=== PATIENT | male | born 1970 | race Two or more races ===

== ENCOUNTER 2021-12-13 12:26 | Emergency (ER) | payer BC, OTHER ==
[~2021-12-13] VITALS: Ht 182.9 cm; Wt 90.7 kg
[2021-12-13] MEDS ORDERED: FLUORESCEIN SOD OPTH TEST STRIP OP ONE (12:45)
[2021-12-13] MEDS ORDERED: TETRACAINE HCL 0.5% OPTH(EYE) SOLN 4ML EACHEYE ONE (12:45)
[2021-12-13 12:50] VITALS: BP 131/101
[2021-12-13] MEDS ORDERED: CIP03OS RIGHTEYE (13:14)
== END 2021-12-13 17:15 | disposition home or self-care (01) ==
LOC: ER 12:26
DX: T15.91XA Foreign body on external eye, part unspecified, right eye, initial encounter (principal); H11.31 Conjunctival hemorrhage, right eye; W22.8XXA Striking against or struck by other objects, initial encounter; Y93.89 Activity, other specified; Y92.89 Other specified places as the place of occurrence of the external cause; Y99.8 Other external cause status
CPT/HCPCS: 65222